=== PATIENT | female | born 2000 | race Caucasian/White ===

== ENCOUNTER 2022-05-05 18:58 | Emergency (ER) | payer MEDICAID ==
[~2022-05-05] VITALS: Ht 167.6 cm; Wt 78.5 kg
[2022-05-05 19:43] VITALS: BP 134/82
[2022-05-05] MEDS ORDERED: IBUP-2213 PO (20:52)
[2022-05-05] MEDS: IBUPROFEN 600 MG TAB PO ONE (20:55)
[2022-05-05 21:29] VITALS: BP 134/82
--- NOTE | 2022-05-05 21:29 | NUR ---
Patient discharged with v/s stable. Written and verbal after care instructions given and explained. Patient verbalized understanding. Ambulatory with steady gait. All questions addressed prior to discharge. Advised to follow up with PMD.
--- NOTE | 2022-05-05 21:29 | NUR ---
PER [employer] FINGER SPLINT APPLIED TO 3RD DIGIT OF THE RIGHT HAND, PT TOLERATED THE SPLINT WELL, +CMS BEFORE AND AFTER APPLICATION
== END 2022-05-05 21:29 | disposition home or self-care (01) ==
LOC: MED 18:58
DX: S60.131A Contusion of right middle finger with damage to nail, initial encounter (principal); Z79.899 Other long term (current) drug therapy; W22.8XXA Striking against or struck by other objects, initial encounter; Y93.89 Activity, other specified; Y92.89 Other specified places as the place of occurrence of the external cause; Y99.8 Other external cause status
CPT/HCPCS: 73140; 99283

== ENCOUNTER 2023-08-04 12:11 | Emergency (ER) | payer MEDICAID ==
[~2023-08-04] VITALS: Ht 175.3 cm; Wt 76.7 kg
[~2023-08-04 12:11] MED LIST: IBUP-2213 PO
[2023-08-04 12:49] VITALS: BP 119/73; PULSE 112; RESP 18; TEMP 99.5; O2SAT 96
[2023-08-04] MEDS ORDERED: KETOROLAC 30 MG/ML VIAL IM ONE (13:30)
[2023-08-04] MEDS ORDERED: PROCHLORPERAZINE 10 MG/2 ML VIAL IM ONE (13:30)
[2023-08-04 14:01] LABS: BILIRUBIN,URINE 2+ (NEGATIVE); BLOOD, URINE 2+ (NEGATIVE); LEUKOCYTE ESTERASE ,URINE TRACE (NEGATIVE); NITRITE, URINE NEGATIVE (NEGATIVE); PH,URINE 5.5 (5.0-9.0); PROTEIN,URINE 2+ (NEGATIVE); UGLUCOSE NEGATIVE (NEGATIVE); UROBILINOGEN,URINE 0.2 EU/dL (0.2 - 1)
[2023-08-04 14:01] LABS: BASOPHILS % (AUTO) 0.1 % (0.0-2.0); HEMATOCRIT 35.4 % (36-48); HEMOGLOBIN 11.8 g/dL (12.0-16.0); LYMPHOCYTES # (AUTO) 0.9 K/uL (2.5-16.5); LYMPHOCYTES % (AUTO) 8.1 % (20.5-51.1); MEAN CORPUSCULAR HEMOGLOBIN 29 pg (27-31); MEAN CORPUSCULAR HGB CONC 33 g/dL (33-37); MEAN CORPUSCULAR VOLUME 87.5 fL (80-94); MONOCYTES # (AUTO) 0.9 K/uL (0.8-1.0); MONOCYTES % (AUTO) 8.1 % (1.7-9.3); NEUTROPHILS # (AUTO) 9.5 K/uL (1.8-7.7); NEUTROPHILS % (AUTO) 83.7 % (42.2-75.2); PLATELET COUNT (AUTO) 234 K/uL (140-450); RED BLOOD CELL COUNT(AUTO) 4.05 MIL/uL (4.20-5.40); RED CELL DISTRIBUTION WIDTH 13.4 % (11.6-13.7); WHITE BLOOD COUNT (AUTO) 11.4 K/uL (4.8-10.8)
[2023-08-04 14:02] LABS: APPEARANCE,URINE CLEAR (CLEAR); COLOR,URINE YELLOW (YELLOW)
[2023-08-04 14:09] LABS: ICTOTEST NEGATIVE (NEGATIVE)
[2023-08-04 14:10] LABS: BACTERIA,URINE 2+ /HPF (None Seen); SQUAMOUS EPITHELIAL CELL,UR >100 /LPF (0-3 (FEW))
[2023-08-04 14:22] LABS: FLU B ANTIGEN negative (NEGATIVE)
[2023-08-04 14:25] LABS: FLU A ANTIGEN POSITIVE (NEGATIVE)
[2023-08-04] MEDS ORDERED: PROM118S5 PO (14:33)
[2023-08-04] MEDS ORDERED: IBUP-2213 PO (14:33)
[2023-08-04] MEDS ORDERED: ONDA-188 PO (14:33)
== END 2023-08-04 15:23 | disposition home or self-care (01) ==
LOC: MED 12:11
DX: J10.1 Influenza due to other identified influenza virus with other respiratory manifestations (principal); Z20.822 Contact with and (suspected) exposure to COVID-19; Z79.899 Other long term (current) drug therapy; Z79.1 Long term (current) use of non-steroidal anti-inflammatories (NSAID)
CPT/HCPCS: 36415; 81001; 81025; 85025; 87086; 87426; 87804; 96372; 99284; J0780; J1885

== ENCOUNTER 2024-03-07 06:24 | Emergency (ER) | payer MEDICAID ==
[~2024-03-07] VITALS: Ht 167.6 cm; Wt 76.7 kg
[~2024-03-07 06:24] MED LIST changes: +ONDA-188 PO; +PROM118S5 PO
[2024-03-07 06:31] VITALS: BP 113/77; PULSE 68; RESP 18; TEMP 98.7; O2SAT 96
[2024-03-07] MEDS ORDERED: PROM118S5 PO (06:48)
[2024-03-07] MEDS ORDERED: LORA1T1237 PO (06:48)
[2024-03-07 07:02] VITALS: BP 113/77; PULSE 68; RESP 18; TEMP 98.7; O2SAT 96
[2024-03-07 07:39] LABS: FLU A ANTIGEN negative (NEGATIVE); FLU B ANTIGEN negative (NEGATIVE)
== END 2024-03-07 07:02 | disposition home or self-care (01) ==
LOC: MED 06:24
DX: B34.9 Viral infection, unspecified (principal); Z20.822 Contact with and (suspected) exposure to COVID-19; Z79.1 Long term (current) use of non-steroidal anti-inflammatories (NSAID); Z79.899 Other long term (current) drug therapy
CPT/HCPCS: 99283